=== PATIENT | male | born 1970 | race Caucasian/White ===

== ENCOUNTER 2021-03-11 16:32 | Emergency (ER) | payer BC ==
[~2021-03-11] VITALS: Ht 187.9 cm; Wt 91.6 kg
[~2021-03-11 16:32] MED LIST: LIDEX0.05% T; PREDNICOT20 MG PO
[2021-03-11 16:41] VITALS: BP 150/84
[2021-03-11 17:17] LABS: BASO # 0.1 10*3/uL (0.0-0.1); BASO % 0.6 % (0.0-1.0); EOS # 0.3 10*3/uL (0.0-0.4); EOS % 2.7 % (1.0-4.0); HEMATOCRIT 54.1 % (42.0-52.0); LYMPH # 2.3 10*3/uL (1.3-4.4); LYMPH % 22.6 % (27.0-41.0); MEAN CELL VOLUME 90.9 fl (80.0-94.0); MEAN CORPUSCULAR HGB 31.1 pg (27.0-31.0); MEAN CORPUSCULAR HGB CONC 34.2 g/dl (33.0-37.0); MEAN PLATELET VOLUME 9.4 fl (9.6-12.3); MONO # 1.2 10*3/uL (0.1-1.0); MONO % 11.7 % (3.0-9.0); NEUT # 6.3 10*3/uL (2.3-7.9); NEUT % 61.9 % (47.0-73.0); PLATELET COUNT AUTOMATED 258 10*3/uL (130-400); RED BLOOD COUNT 5.95 10*6/uL (4.50-5.90); RED CELL DISTRI WIDTH 12.9 % (0-14.5); WHITE BLOOD COUNT 10.1 10*3/uL (4.8-10.8)
[2021-03-11 17:44] LABS: ALBUMIN 3.7 gm/dl (3.1-4.5); ALKALINE PHOSPHATASE 88 U/L (45-117); BUN 13 mg/dl (7-24); CHLORIDE 107 mmol/L (98-107); CREATININE 1.08 mg/dL (0.70-1.30); POTASSIUM 4.6 mmol/L (3.5-5.1); SGOT/AST 20 IU/L (3-35); SGPT/ALT 23 U/L (12-78); SODIUM 139 mmol/L (136-145); TOTAL PROTEIN 7.8 gm/dL (6.4-8.2)
[2021-03-11 17:47] LABS: TROPONIN I < 0.015 ng/ml (<0.045)
[2021-03-11 18:16] LABS: BILIRUBIN Negative (Negative); BLOOD Negative (Negative); CLARITY Clear (Clear); COLOR Yellow (Yellow); GLUCOSE Trace (Negative); KETONE Negative (Negative); LEUKO ESTERASE Negative (Negative); NITRITE Negative (Negative); PH 5.5 (4.5-8.0); UROBILINOGEN 0.2 E.U./dl (0.0-1.0)
[2021-03-11 18:35] LABS: BACTERIA TRACE; HYALINE CAST 0-2; WBC 0-2 wbc/hpf (0-5)
== END 2021-03-11 19:17 | disposition home or self-care (01) ==
LOC: ED 16:32
PROVIDERS: Emergency Medicine
DX: R42 Dizziness and giddiness (principal); D75.1 Secondary polycythemia

== ENCOUNTER 2022-12-06 23:13 | Emergency (ER) | payer BC ==
[~2022-12-06] VITALS: Ht 187.9 cm; Wt 90.5 kg
[2022-12-07 00:48] VITALS: BP 136/78
== END 2022-12-07 02:34 | disposition home or self-care (01) ==
LOC: ED 23:13
DX: R51.9 Headache, unspecified (principal); F41.9 Anxiety disorder, unspecified

== ENCOUNTER 2023-02-25 12:03 | Emergency (ER) | payer BC ==
[~2023-02-25] VITALS: Ht 187.9 cm; Wt 88.5 kg
[~2023-02-25 12:03] MED LIST changes: +IBU800 M1 PO; +ONDANSETRON4 MG SL; +SERTRALINE HYDR50 MG PO
[2023-02-25 12:11] VITALS: BP 130/86
[2023-02-25 12:49] LABS: HEMATOCRIT 51.4 % (42.0-52.0); MEAN CELL VOLUME 92.4 fl (80.0-94.0); MEAN CORPUSCULAR HGB 31.8 pg (27.0-31.0); MEAN CORPUSCULAR HGB CONC 34.4 g/dl (33.0-37.0); MEAN PLATELET VOLUME 9.4 fl (9.6-12.3); PLATELET COUNT AUTOMATED 232 10*3/uL (130-400); RED BLOOD COUNT 5.56 10*6/uL (4.50-5.90); RED CELL DISTRI WIDTH 13.2 % (0-14.5); WHITE BLOOD COUNT 9.7 10*3/uL (4.8-10.8)
[2023-02-25 12:57] LABS: MANUAL DIFF REFLEX YES
[2023-02-25 13:10] LABS: ATYPICAL LYMPHS 7 % (0-0); BASOPHILS 2 % (0-1); PLATELET SUFFICIENCY NORMAL (NORMAL); TOTAL CELLS COUNTED 100 #CELLS
[2023-02-25 13:13] LABS: ALKALINE PHOSPHATASE 77 U/L (46-116); BUN 10 mg/dl (9-23); CHLORIDE 106 mmol/L (98-107); POTASSIUM 4.5 mmol/L (3.4-5.1); SGPT/ALT 17 U/L (10-49); TOTAL PROTEIN 7.2 gm/dL (6.0-8.0)
[2023-02-25] MEDS ORDERED: ANTIVERT25 M2 PO (13:32)
== END 2023-02-25 14:37 | disposition home or self-care (01) ==
LOC: ED 12:03
PROVIDERS: Emergency Medicine
DX: R42 Dizziness and giddiness (principal); F41.9 Anxiety disorder, unspecified; Z90.89 Acquired absence of other organs; F17.200 Nicotine dependence, unspecified, uncomplicated

== ENCOUNTER 2024-11-02 09:19 | Emergency (ER) | payer BC ==
[~2024-11-02] VITALS: Ht 187.9 cm; Wt 101.9 kg
[~2024-11-02 09:19] MED LIST changes: +ANTIVERT25 M2 PO
[2024-11-02] MEDS ORDERED: BUSPIRONE HCL10 MG PO (09:40)
[2024-11-02 09:41] VITALS: BP 140/87
[2024-11-02] MEDS ORDERED: AVPAK AZITHROM250 M1 PO (09:50)
== END 2024-11-02 10:10 | disposition home or self-care (01) ==
LOC: ED 09:19
DX: J32.9 Chronic sinusitis, unspecified (principal); Z20.822 Contact with and (suspected) exposure to COVID-19; F32.A Depression, unspecified; F41.9 Anxiety disorder, unspecified; F17.200 Nicotine dependence, unspecified, uncomplicated; Z90.89 Acquired absence of other organs